=== PATIENT | female | born 1990 | race Caucasian/White ===

== ENCOUNTER 2024-01-06 11:50 | Emergency (ER) | payer BC ==
--- OUTSIDE RECORDS SUMMARY | 2024-01-06 11:54 | XMS REPORT | Continuity of Care Document ---
Author Name Unknown Address [address] [facility] [address]. [address] [place] [address] [facility] thconnect Address [address] [facility] [address] [place] [address] Care Team Providers Care Basting Puller Name Role Phone Quan Shultz Primary Care Physician [phone] Margoth Mabry Attending Clinician Unavailable Ryder Plasencia Attending Clinician Doctor Unassigned, [place] Attending Clinician U navailable Unknown, Attending Attending Clinician Unavailab RYDER Estrada Attending Clinician Unavailable Nayeli Arreguin Attending Clinician Unavailable Margoth Mabry Admitting Clinician Unavailable Physician, No Primary or Family Admitting Clinic jennifer Unavailable Payers Payer Name Policy Type Policy Number Effective Date Expirati on Date Source Problems Condition Name Condition Details Condition Category Status Onset Date Resolution Date Last Treatment Date Treating Clinician Comments Source No known active problems No known active problems Disease [facility] Allergies, Adverse Reactions, Alerts Allergy Name Allergy Type Status Severity Reaction(s) Onset Date Inactive Date Treating Clinician Comments Source No Known Allergie s DA Active U 5-16 00:00: 00 [facility] No Known Allergie s DA Active U 8-06 00:00: 00 [facility] No Known Allergie s DA Active U 8-06 00:00: 00 [facility] No Known Allergie s DA Active U 4 00:00: 00 [facility] NO KNOWN ALLERGIE S Drug Class Active [facility] Social History Social Habit Start Date Stop Date Quantity Comments Source [facility] Exposure to SARS-CoV-2 (event) 2022-10-07 00:00:00 2022-10-17 10:55:00 Not sure [facility] Tobacco use and exposure 2022-10-17 00:00:00 2022-10-17 00:00:00 Smokeless tobacco non-user [facility] Sex Assigned At 1990 00:00:00 1990 00:00:00 [facility] Smoking Status Start Date Stop Date Source Tobacco smoking consumption unknown [facility] Never smoked tobacco [facility] Medications Ordered Medication Name Filled Medication Name Start Date Stop Date Current Medication? Ordering Clinician Indication Dosage Frequency Signature (SIG) Comments Components Source carisoprodo l (SOMA) 350 mg tablet 10-17 10:59: 23 Yes 350mg Take 350 mg by mouth every 6 (six) hours as needed for Other (Muscle spasms.). [facility] amoxicillin 875 mg tablet 10-17 00:00: 00 10-28 05:59 :00 No [id number] 875mg Take 1 tablet by mouth in the morning and 1 tablet in the evening. Do all this for 10 days. [facility] valACYclovi r (VALTREX) 1 gram tablet 10-17 00:00: 00 10-25 05:59 :00 No [id number] 1g Take 1 tablet by mouth in the morning and 1 tablet in the evening. Do all this for 7 days. [facility] ESTARYLLA 0.25-35 mg-mcg per tablet 2021-09 00:00: 00 Yes 1{tbl} Take 1 tablet by mouth daily. [facility] carisoprodo l (SOMA) 350 mg tablet 11-25 00:48: 09 Yes 350mg Take 350 mg by mouth every 6 (six) hours as needed for Other (Muscle spasms.). [facility] naproxen sodium (ANAPROX) 550 mg tablet 11-25 00:00: 00 Yes 550mg Take 1 Tab by mouth 2 (two) times daily with meals. [facility] Vital Signs Vital Name Observation Time Observation Value Comments S juany Systolic blood pressure 2022-10-17 16:58:00 133 mm[Hg] [facility] Diastolic blood pressure 2022-10-17 16:58:00 83 mm[Hg] [facility] Heart rate 2022-10-17 16:58:00 78 /min [facility] Body temperature 2022-10-17 16:58:00 36.56 Sofie [facility] Respiratory rate 2022-10-17 16:58:00 17 /min [facility] Body weight 2022-10-17 16:58:00 101.606 kg [facility] BMI 2022-10-17 16:58:00 35.08 kg/m2 [facility] Oxygen saturation in Arterial blood by Pulse oximetry 2022-10-17 16:58:00 96 /min [facility] Procedures Procedure Date / Time Performed Performing Clinicia n Source ASSIGNMENT OF BENEFITS 2022-10-17 16:51:37 Docto r Unassigned, [place] [facility] [id number] 2022-03-10 00:00:00 FATOU [facility] Encounters Start Date/Time End Date/Time Encounter Type Admission Type Attending Clinicians Care Facility Care Department Encounter ID Source 2022-03-10 10:06:00 Inpatient SHILPI Margoth Mabry [facility] [id number] [facility] 2022-03-09 10:00:00 Inpatient Margoth Mabry [facility] [id number] [facility] 2022-10-19 00:00:00 2022-10-19 00:00:00 Patient Secure Msg Ryder Winston [facility] [id number] [id number] [facility] 2022-10-18 00:00:00 2022-10-18 00:00:00 Patient Secure Msg Doctor Unassigned, [place] [facility] [id number] [id number] [facility] 2022-10-17 11:00:00 2022-10-17 11:06:00 Urgent Care Ryder Winston Unknown, Attending [facility] [id number] [id number] [id number] [facility] 2022-10-17 11:00:00 2022-10-17 11:06:00 Outpatient R RYDER WINSTON [facility] [id number] [facility] 2022-10-17 00:00:00 2022-10-17 00:00:00 Orders Only Doctor Unassigned, [place] [facility] [id number] [id number] [id number] [facility] 2022-03-10 10:06:00 2022-03-12 16:13:00 Inpatient Margoth Burt [facility]PP [id number] [facility] 2022-02-09 11:12:00 2022-02-09 12:18:00 Emergency EM ArreguinNayeli [facility] DRISS [id number] [facility] 2022-02-09 11:12:00 2022-02-09 12:18:00 Emergency EM ArreguinNayeli [facility] [id number] [facility] Results Test Description Test Time Test Comments Results Result Co mments Source AG HEPATITIS B [id number] 13:44:00* Test Item Value Reference Range Interpretation Comme nts AG HEPATITIS B SURFACE (test code = HBSAG) NONREACTIVE NONREACTIVE AB HEPATITIS C [id number] 13:44:00* Test Item Value Reference Range Interpretation Comme nts AB HEPATITIS C (test code = HCVAB) NONREACTIVE NONREACTIVE SIGNAL TO CUTOFF (test code = CUTOFF) 0.02 <0.80 N AB [id number] 13:44:00* Test Item Value Reference Range Interpretation Comme nts AB TREPONEMA (test code = TREPAB) NONREACTIVE NONREACTIVE AB HIV 1 13:44:00* Test Item Value Reference Range Interpretation Comme nts AB HIV 1 2 (test code = UPT35IC) NONREACTIVE NONREACTIVE Done by Likely.coauD4P 4th Gen HIV Ag/Ab Combo Screen COVID 19 Asymptomatic IH [id number] 13:30:00* Test Item Value Reference Range Interpretation Comme nts COVID 19 Asymptomatic IH AG (test code = COVNONPUIAG) NEGATIVE NEGATIVE This test has be en authorized only for the detection ofproteins from SARS-CoV-2, not for any other viruses orpathogens. Negative results should be treated as presumptive andconfirmed with a molecular assay, if necessary for patientmanagement. Negative results do not rule out COVID-19 andshould not be used as the sole basis for treatment orpatient management decisions, including infection controldecisions. Negative results should be considered in thecontext of a patient's recent exposures, history and thepresence of clinical signs and symptoms consistent withCOVID-19. This test has not been FDA cleared or approved; the test hasbeen authorized by FDA under an Emergency Use Authorization(EUA) for use by laboratories certified under the CLIA thatmeet the requirements to perform moderate, high or waivedcomplexity tests. This test is authorized for use at thePoint of Care (POC), i.e., in patient care settingsoperating under a CLIA Certificate of Waiver, Certificate ofCompliance, or Certificate of Accreditation. This test is only authorized for the duration of thedeclaration that circumstances exist justifying theauthorization of emergency use of in vitro diagnostic testsfor detection and/or diagnosis of COVID-19 under Pczocny330(b)(1) of the Act, 21 U.S.C. 360bbb-3(b)(1), unless theauthorization is terminated or revoked sooner. CBC W/AUTO [id number] 12:27:00* Test Item Value Reference Range Interpretation Comme nts WHITE BLOOD CELL (test code = WBC) 9.7 K/mm3 6.5-12.3 N RED BLOOD CELL (test code = RBC) 4.08 M/mm3 3.51-4.69 N HEMOGLOBIN (test code = HGB) 10.8 g/dL 10.1-13.8 N HEMATOCRIT (test code = HCT) 34.3 % 32.5-41.8 N MEAN CELL VOLUME (test code = MCV) 84.1 fL 84.6-96.6 L MEAN CELL HGB (test code = MCH) 26.5 pg 27.3-33.9 L MEAN CELL HGB CONCETRATION ( test code = MCHC) 31.5 gm/dL 32.0-34.2 L RED CELL DISTRIBUTION WIDTH (test code = RDW) 14.6 % 12.2-16.3 N PLATELET COUNT (test code = PLT) 251 K/mm3 134-363 N MEAN PLATELET VOLUME (test c ode = MPV) 10.3 fL 9.2-12.7 N NEUTROPHIL % (test code = NT%) 65.6 % 57.9-77.3 N LYMPHOCYTE % (test code = LY%) 20.4 % 14.5-29.7 N MONOCYTE % (test code = MO%) 10.5 % 3.6-10.2 H EOSINOPHIL % (test code = EO%) 1.5 % 0.0-3.0 N BASOPHIL % (test code = BA%) 0.6 % 0.1-0.9 N NEUTROPHIL # (test code = NT#) 6.4 K/mm3 LYMPHOCYTE # (test code = LY#) 2.0 K/mm3 MONOCYTE # (test code = MO#) 1.0 K/mm3 EOSINOPHIL # (test code = EO#) 0.15 K/mm3 BASOPHIL # (test code = BA#) 0.1 K/mm3 RBC MORPHOLOGY REQUIRED (lela t code = RBCM) NORMAL NORMAL PLATELET MORPHOLOGY REQUIRED (test code = PLTMR) NORMAL NORMAL HGB [id number] 12:46:00* Test Item Value Reference Range Interpretation Comme nts HEMOGLOBIN (test code = HGB) 7.9 g/dL 10.7-13.9 L HEMATOCRIT (test code = HCT) 26.1 % 32.1-42.1 L HGB [id number] 05:47:00* Test Item Value Reference Range Interpretation Comme nts HEMOGLOBIN (test code = HGB) 7.8 g/dL 10.7-13.9 L HEMATOCRIT (test code = HCT) 25.7 % 32.1-42.1 L AG HEPATITIS B [id number] 17:05:00* Test Item Value Reference Range Interpretation Comme nts AG HEPATITIS B SURFACE (test code = HBSAG) NONREACTIVE NONREACTIVE IS CONSENT FORM SIGNED FOR HIV TESTING? YAB HEPATITIS C [id number] 17:05:00* Test Item Value Reference Range Interpretation Comme nts AB HEPATITIS C (test code = HCVAB) NONREACTIVE NONREACTIVE SIGNAL TO CUTOFF (test code = CUTOFF) 0.02 <0.80 N IS CONSENT FORM SIGNED FOR HIV TESTING? YAB [id number] 17:05:00* Test Item Value Reference Range Interpretation Comme nts AB TREPONEMA (test code = TREPAB) NONREACTIVE NONREACTIVE IS CONSENT FORM SIGNED FOR HIV TESTING? YAB HIV 1 17:05:00* Test Item Value Reference Range Interpretation Comme nts AB HIV 1 2 (test code = [id number]) NONREACTIVE NONREACTIVE Done by [employer] 4th Gen HIV Ag/Ab Combo Screen IS CONSENT FORM SIGNED FOR HIV TESTING? YAG HEPATITIS B [id number] 16:27:00* Test Item Value Reference Range Interpretation Comme nts AG HEPATITIS B SURFACE (test code = HBSAG) NONREACTIVE NONREACTIVE IS CONSENT FORM SIGNED FOR HIV TESTING? YAB HEPATITIS C [id number] 16:27:00* Test Item Value Reference Range Interpretation Comme nts AB HEPATITIS C (test code = HCVAB) NONREACTIVE SIGNAL TO CUTOFF (test code = CUTOFF) <0.80 IS CONSENT FORM SIGNED FOR HIV TESTING? YAB [id number] 16:27:00* Test Item Value Reference Range Interpretation Comme nts AB TREPONEMA (test code = TREPAB) NONREACTIVE NONREACTIVE IS CONSENT FORM SIGNED FOR HIV TESTING? YAB HIV 1 16:27:00* Test Item Value Reference Range Interpretation Comme nts AB HIV 1 2 (test code = TGV17BZ) NONREACTIVE IS CONSENT FORM SIGNED FOR HIV TESTING? YCBC W/AUTO [id number] 15:31:00* Test Item Value Reference Range Interpretation Comme nts WHITE BLOOD CELL (test code = WBC) 10.4 K/mm3 6.6-12.1 N RED BLOOD CELL (test code = RBC) 4.08 M/mm3 3.45-5.01 N HEMOGLOBIN (test code = HGB) 10.6 g/dL 10.7-13.9 L HEMATOCRIT (test code = HCT) 33.8 % 32.1-42.1 N MEAN CELL VOLUME (test code = MCV) 83 fL 84.1-94.8 L MEAN CELL HGB (test code = MCH) 26.0 pg 27-35 L MEAN CELL HGB CONCETRATION ( test code = MCHC) 31.4 gm/dL 32.2-34.1 L RED CELL DISTRIBUTION WIDTH (test code = RDW) 14.5 % 12.4-16.5 N PLATELET COUNT (test code = PLT) 277 K/mm3 133-385 N IMMATURE PLATELET FRACTION ( test code = IPF) 0.0 % 0.0-10.8 N MEAN PLATELET VOLUME (test c ode = MPV) 10.0 fl 9.1-12.7 N NEUTROPHIL % (test code = NT%) 69.2 % 56.5-79.4 N LYMPHOCYTE % (test code = LY%) 17.1 % 14.3-34.3 N MONOCYTE % (test code = MO%) 10.3 % 5.1-10.4 N EOSINOPHIL % (test code = EO%) 1.4 % 0.1-3.0 N BASOPHIL % (test code = BA%) 0.3 % 0.1-1.0 N NEUTROPHIL # (test code = NT#) 7.2 K/mm3 LYMPHOCYTE # (test code = LY#) 1.8 K/mm3 MONOCYTE # (test code = MO#) 1.1 K/mm3 EOSINOPHIL # (test code = EO#) 0.14 K/mm3 BASOPHIL # (test code = BA#) 0.0 K/mm3 RBC MORPHOLOGY REQUIRED (lela t code = RBCM) NORMAL NORMAL PLATELET MORPHOLOGY REQUIRED (test code = PLTMR) NORMAL NORMAL Notes Date/Time Note Provider Source 2022-03-11 10:34:00 [id number]:34:0 0 [facility] ([facility])OB Disch PostpartumREPORT#:[id number] REPORT STATUS: SignedDATE:03/11/22 TIME: 1034 PATIENT: ALEJANDRO SUTHERLAND UNIT #: [id number]#: [id number] ROOM/BED: 2041-ADOB: [birth year] AGE: 31 SEX: F ATTEND: Margoth Mabry [facility] AUTHOR: Rosalie Maurer * ALL edits or amendments must be made on the electronic/computer document * Subjective SubjectiveAdmission EGA: Weeks: 37 Days: 0EGA at delivery (wks/days): 37 weeksStatus/day: post operative (1)Patient reports: Patient reports: Yes: normal lochia, pain management effective, tolerating po well, voiding well, voiding without pain, tolerating ambulation, flatus. No: complaints. Objective GeneralVS:Vital Signs Date Temp Pulse Resp B/P B/P Mean Pulse Ox FiO2 03/10-03/11 97.8-98.2 75-96 18 91-114/49-68 69.0-79.0 95-97 Last Documented: Result Date Time B/P 107/03/11 09 Temp 98.2 03/11 0909 Pulse 86 03/11 0909 Resp 18 03/11 0909 B/P Mean 76.0 03/10 1645 Pulse Ox 97 03/10 1645 PATIENT WEIGHT: Weight (lb): 230Weight (oz): 8.66Weight (kg): 95.500 Physical ExamBreasts: Breasts: fillingLungs: clear to auscultation (no distress )Neuro: Exam: alert, oriented x3, normal speech, normal gaitAbdomen: post gravid, soft, no abnormal tendernessIncision site: dry, no drainage, no inflammationUterus: involution appropriate, non-tenderFundus: firm, below the umbilicusLochia: normalLower extremities: Edema: trace ResultsFindings/Data:Laboratory Tests: 03/11 03/09 0713 1052 Hematology Hgb (10.1 - 13.8 g/dL) 9.9 L Hct (32.5 - 41.8 %) 31.3 L Serology SARS-CoV-2 Ag (Rapid) (NEGATIVE) NEGATIVE Discharge Summary GeneralFree Text A P:31yo s/p rpt c/s at 37.0wga for prior c/s x1, h/o myomectomy, h/o uterine window during last deliveryPostop day 1 Preoperative Hgb 10.8, ebl appropriate at c/s, no hemorrhage, postoperative hgb 9.9 chronic anemia of , discussed PP iron and pnv Pain- PO pain meds- tolerating well, pt states minimal pain Incision- c/d/I, incisioncal care reviewedGU- patricio removed, voiding without difficulty, encouraged pp stool softener Rh+/MMRVIPMH - endometriosis, fibroids, irregular periods; PSH - breast augmentation, c/s x2, laparoscopy x2, ovarian cystectomy, myomectomy (Dr. Berry for endometriosis)OB- Baby Boy! "Glenn" getting circ. patient and spouse at bedside Dispo- meeting postoperative milestones, states minimal pain, ambulating well, d/c tomorrow per patient request pending pedi clearance. PP medications escribed, anticipate 2 week f/u at [facility], Assessment: nml progress, chronic blood loss anemiaDate of admission:Date of admission: 03/10/22 Admission diagnosis: previous uterine incisionHospital course: repeat admit, epidural anesthesiaProcedures: epidural anesthesia, repeat CS deliveryDischarge to: Home/Self CareDischarge diagnosis: full-term uncomp delivery, previous uterine incisionDischarge management: less than 30 minsTime spent: Time spent with patient (minut 15 >50% spent on counseling/coordination of care: yesBaby A: status: live born Gender: male (Glenn) 1 minute: 8 5 minutes: 9 Discharge InstructionsInstructions: routine instr sheet given, instr and warnings rev'dDiet: RegularActivity: Light Duty, No Merrick for 6 WksAdditional discharge routines: Attending Follow-UpContraception discussed: abstinence for 4-6 weeks, will discuss at PP visitDischarge meds:Continue taking these medications:PNV WITH FE FUMARATE/FA () 1 EACH TAB 1 TABLET ORAL DAILY. Start taking the following new medications:IBUPROFEN (MOTRIN) 600 MG TAB 600 MILLIGRAM ORAL EVERY 6 HOURS. Qty = 30 Refills = 1 DOCUSATE SODIUM (COLACE) 100 MG CAP 100 MILLIGRAM ORAL BEDTIME. Qty = 30 No Refills Prescriptions: e-prescribe Add'l Follow-up AppointmentsAttending Physician: Attending Physician: Margoth Mabry MD Special instructions:call if heavy bleeding, severe pain, shortness of breath, fever/chills, emotion concerns at [address] [place] [address] #:[phone] OF REPORT CLClinical [id number]:34:00F.[id number] able for patient [id number]:39:09 [facility] 2022-03-10 14:36:00 [id number] 3/SEZ//[id number]+G+[id number]:36:0 0 [facility])OB Delivery NoteREPORT#:[id number] REPORT STATUS: SignedDATE:03/10/22 TIME: 1436 PATIENT: ALEJANDRO SUTHERLAND UNIT #: [id number]#: [id number] [address] [birth year] AGE: 31 SEX: F ATTEND: Margoth Mabry [facility] AUTHOR: Margoth Mabry MD * ALL edits or amendments must be made on the electronic/computer document * OB Delivery Nursing Documentation ReviewNursing data:The data set between the solid lines has been imported from nursing documentation. Any exceptions have been noted below under Provider comments. ROM date: ROM time: Membranes rupture method: Amniotic fluid color: Amniotic fluid amount: Steroids prior to arrival: Antibiotic prophylaxis given: YesPost hemorrhage risk score: Medium Risk for Hemorrhage. Delivery date A: Delivery time infant A: Birthweight (gm) infant A: Weight (lb) infant A: Weight (oz) infant A: Gender infant A: 1 minute infant A: 5 minutes A: 10 minutes A: Cord pH obtained A: Vacuum time infant A: Vacuum # pulls infant A: Vacuum # popoffs A: QBL at delivery: Provider comments on imported nursing data: [] Pre-deliveryNewborn evaluation at delivery: NRP certified personnelAdmission EGA: Weeks: 37 Days: 0EGA at delivery (wks/days): 37 weeksAdmission indication:prior c/s x1, prior myomectomy, prior uterine window previously seen with last delivery Blood Loss/DetailsBlood loss at delivery: <1K: no sx hypovol=no hemEBL at delivery (ml's): 700 Baby A InformationBaby A information Delivery date: 03/10/22 Delivery time: 1414 status: live born Wt of baby (lbs/oz): 7.6 Gender: male (Glenn) 1 minute: 8 5 minutes: 9 Presentation: vertexABG details Baby A Cord blood gases: not collectedNuchal cord Baby A Nuchal cord: no Operative Note-FullORM Surgeries: Surgery Date and Time: 03/10/2022 1200 Proposed Primary Procedure: (R C/S EDC 7.5 10/28 AREF H/O Nursing Data:The data set between the solid lines has been imported from nursing documentation. Any exceptions have been noted below under Provider comments. ROM date: ROM time: Membranes rupture method: Amniotic fluid color: Amniotic fluid amount: Steroids prior to arrival: Antibiotic prophylaxis given: YesPost hemorrhage risk score: Medium Risk for Hemorrhage. Delivery date infant A: Delivery time infant A: Birthweight (gm) infant A: Weight (lb) infant A: Weight (oz) A: Gender infant A: 1 minute A: 5 minutes A: 10 minutes infant A: Cord pH obtained infant A: Vacuum time A: Vacuum # pulls infant A: Vacuum # popoffs infant A: QBL at delivery: Provider comments on imported nursing data: [] )(Start date: 03/10/22)(Start time: 1410)(Pre-procedure diagnosis:prior c/s x1)(Post-procedure diagnosis: same as pre-procedure dx)(Procedures performed:repeat low transverse csection)(Primary Surgeon: Margoth Mabry MD)(Manager Progressive Care(s): MIKALA Rodriguez)(Anesthesia: combined spinal/epiIndications:prior c/s x1, prior myomectomy, prior uterine window)(Operative findings:Male infant in cephalic presentation, vigorous immediately after delivery. Evidence of endometriosis on posterior aspect of uterus, evidence of prior surgery with Dr. Berry (fimbrioplasty, uterine suspension, LSO), otherwise minimal scar tissue/adhesive disease)( Estimated blood loss (ml): 700)(Specimens removed/altered: noneFluids:800Urine output:175Disposition: PACU, return to floorCounts: Sponge count: correct Instrument count: correct Needle count: correct Cottonoid count: correctWound class: clean Delivery DeliveryCesarean section indication: elective repeat Priority: scheduled : : contraindicated Antibiotic prior to incision: 1 dose )(SCDs applied activated: Yes Uterine incision: low transverse Uterine scar: intact Consent: indication discussed, questions answered, pt consent to op delivery Mother's condition: mother stable 's condition: stable in roomAdditional comments:After informed consent was obtained, the patient was taken to the operating roomwhere anesthesia was administered and found to be adequate. She was then preppedand draped in sterile fashion in a dorsal supine position with a leftward tilt. A time out procedure was then performed and the OR team agreed to the planned procedure. The patient s abdomen was then tested with an Allis clamp and anesthesia was found to be adequate. A Pfannenstiel skin incision was then made with the scalpel and carried down to the underlying fascia with the bovie. The bovie was then used to score the fascia in the midline and the incision was then extended laterally using Tapia scissors. The superior aspect of the fascial incision was then grasped with Sarbjit clamps, elevated and rectus muscles were dissected off. The inferior aspect of the fascial incision was then grasped with Sarbjit clamps, elevated andrectus muscles were dissected off. The rectus muscles were then in the midline and the peritoneum identified in a clear area and entered bluntly. The peritoneum was then extended superior and inferiorly with good visualization of the bladder. The bladder blade was then inserted and the vesicouterine peritoneum was then identified, grasped with pickups and entered sharply using Metzembaum scissors. The incision was then extended laterally and bladder flap created digitally. The bladder blade was then reinserted and the uterus was incised in a transversefashion with the scalpel. The incision was then extended laterally using Crump method. The was then delivered in cephalic presentation atraumatically, nose and mouth were suctioned, cord was clamped and cut, and was handed off to waiting nurse. Nuchal cord was not noted. Cord blood banking was not collected. The placenta was then removed manually and the uterus was exteriorized and was cleared of all clots and debris with a moist lap sponge. The hysterotomy was then repaired using 0 Monocryl in a running locked fashion with good hemostasis noted. The uterus was then returned to the abdomen. The pelvic colic gutters were then cleared off all clots and debris using a moist lap sponge. The hysterotomy and bladder were then reinspected and found to be hemostatic. The rectus muscles and peritoneum were then reapproximated in the midline using 2.0 Chromic in a mattress suture fashion. The muscle and fascia were then examined and found to be hemostatic. The fascia was then reapproximated using 0Vicryl in a running fashion. The subcutaneous tissue was then irrigated and bovie cautery was used to obtain hemostasis. The subcutaneous tissue was then reapproximated using 2.0 Plain. The skin was then closed with 3.0 Monocryl in asubcuticular fashion. The patient tolerated the procedure well. She was then taken to recovery room in stable condition. Sponge, lap and needle counts were correct times 3. The radiofrequency scan was performed for retained sponges and was negative. 2 grams of ancef were given prior to the start of surgery for surgical prophylaxis. at 1550 [facility] #:[id number] OF REPORT CLClinical kbjj4942-55-56Z53:36:00F.[id number] able for patient titnYNNRONLERUZUOF0638-61-20J11:51:07 [facility] 2022-03-10 12:08:00 [id number] C7LX4GmBeez1+6IyDYVXhLLgDGz03 lcJ6YsXE9LUEx1MiSfF6Jl+b+63ip3R0550-91-09T81:08:0 0 [facility] ([facility])Clinical NoteREPORT#:[id number] REPORT STATUS: SignedDATE:03/10/22 TIME: 1208 PATIENT: ALEJANDRO SUTHERLAND UNIT #: [id number]#: [id number] ROOM/BED: [place] [address]-ADOB: [birth year] AGE: 31 SEX: F ATTEND: Margoth Mabry [facility] AUTHOR: Margoth Mabry MD * ALL edits or amendments must be made on the electronic/computer document * Clinical NoteNote:See H P in paper chart for full details 31yo at 37.0wga presents for scheduled repeat c/s for prior c/s x1, h/o myomectomy, h/o uterine window during last deliverey1. Prior c/s with prior myomectomy/uterine window - not a candidate for , desires repeat c/s; declines btl2. Rh+/MMRVI3. PMH - endometriosis, fibroids, irregular periods; 4. PSH - breast augmentation, c/s x1, laparoscopy x2, ovarian cystectomy, myomectomy (Dr. Berry for endometriosis)5. Boy! "Glenn"6. Will proceed to OR, anticipate dc home POD 2/3 at 1541 RPT #:[id number] OF REPORT CLClinical yhbf8893-11-40K34:08:00F.AZBE86648579-4470OHKowmc able for patient wfmeJIIVPKAHLNHFLF8593-78-76Y01:42:16 [facility] 2022-02-09 12:44:00 [id number] ruTFGT970PYGaOPSV5ztW90rDxT1q la0LBCfAXjWSFaCVgDs0VQaKFv+5dZ66123-03-08W04:44:0 0 [facility] ([facility])EMERGENCY PROVIDER REPORTREPORT#:[id number] REPORT STATUS: SignedDATE:02/09/22 TIME: 1244 PATIENT: ALEJANDRO SUTHERLAND UNIT #: [id number]#: [id number] ROOM/BED:AGE: 31 SEX: F PCP PHYS: Margoth Mabry AUTHOR: Nayeli Arreguin DO * ALL edits or amendments must be made on the electronic/computer document * [facility] History Nursing Documentation ReviewNursing data:The data set between the solid lines has been imported from nursing documentation. Any exceptions have been noted below under Provider comments. Current dataSteroids prior to arrival: ROM date: ROM time: EDC date: 03/31/22Gestational age (labor triage): Post hemorrhage risk score: Prior historyGravida: 2 Para: 1 Term: : Abortions spontaneous: Abortions induced: Living children: Ectopic: Stillbirths: Live births: deaths: Number of previous C/S: Reported maternal labs/dataBlood type: Rh type: Rubella: Hepatitis B: HIV exposure test: UnknownVDRL: Group B beta strep: Rho(D) immune globulin this preg: Monitor mode - UA: Feeding preference: Provider comments on imported nursing data: [] Chief complaint: diarrhea, discomfortHPI:31 yo at 32+6 weeks KELIN presents to [facility] with diarrhea since 0900 yesterdayand am upper abdominal discomfort/pressure. Otherwise she feels well and denies f/c/n/v. Denies sick contacts, and reports eating crawfish on wednesday night.Otherwise, she feels well, reports +FM, denies VB/LOF/RUC. history: : 2 Term: 1 Living children: 1 Previous : low uterine trans incis Number of prev : 1Conditions of : previous uterine incisionPast medical history: endometriosis, anxiety (no meds)Past surgical history: , diagnostic lap, laparotomy x1 for endometriosis, breast augmentationSocial history: , no alcohol use, no tobacco use, no drug useMedications:Home Medications:Medication Dose/Rte/Freq Days Qty Entered Last Max Daily Dose Reviewed PNV WITH FE 1 TAB PO DAILY 02/09/22 FUMARATE/FA 1129 ()Strength: 1 EACH TAB Ondansetron Hcl (ZOFRAN) 4 MG PO 02/09/22Strength: 4 MG/5 ML ORALSOL TID PRN PRN NAUSEA 1130 AllergiesCoded Allergies:No Known Allergies (02/09/22) Review of Systems Free Text ROS NotesFree text ROS notes:10 systems reviewed and negative with exception of the following pertinent positives: abdominal discomfort (upper), diarrhea Objective GeneralVS:PATIENT WEIGHT: Weight (lb): 230Weight (oz): 6.13Weight (kg): 104.500 Notes:VS: normotensive, afebrile, P:101, RR:18, POX: room air Physical ExamHEENT: normocephalic w/o injury, no scleral icterusCardiac: mild tachycardia, no peripheral edemaLungs: unlabored breathingNeuro: Exam: alert, oriented x3, normal speech, normal gait, CNII-XII grossly intactAbdomen: gravid, soft, no abnormal tenderness, no guarding, no rebound tenderness, some dull achy pain when palpate deeply in the epigastrium, no pain otherwise noted, no rebound, peritoneal signsMusculoskeletal: normal inspection, painless range of motionUterine activity: Monitor: toco Frequency (description): none, irritability FHR evaluation: FHR category: category 1Membranes: Membranes: IntactLower extremities: Edema: none Diagnosis, Assessment Plan Diagnosis, Assessment PlanFree Text A P:31 yo at 32+6 with clinical picture most c/w acute gastritis, likely eitherdue to viral origin or contaminated food handling (eg, crawfish boil this weekend). Afebrile, FHR CAtegory 1, no ctx. -At this time we discussed the typical course of gastritis in and how foods can affect GI system differently in (especially if contaminated)-Recommend a trial of BLAND diet, PO pepcid or prilosec daily and immodium prn for diarrhea, copious water hydration as well-as most of these symptoms resolve within 48 hours of symptom onset-She feels comfortable with this plan and all of her questions were answered-We reviewed [facility] return precautions-Discharged home to f/u with her OB at her next appt Gilberto Arreguin DO FACOG at 1447 RPT #:[id number] OF REPORT CLClinical fkfg7534-28-15K68:44:00F.FBUC94015775-4081PFJtbmy able for patient gsrlXOWPICZLVLVMZG9857-66-48F56:47:14 [facility] 2019-05-05 10:04:00 [id number] saqnelIn7EeB9dQ/HjnkfGiITCTpM xzfrzaBEqBAkS98haWBGJYeym2CmCXxxr97454-04-18I76:0 4:00 [facility] ([facility])Clinical NoteREPORT#:[id number] REPORT STATUS: SignedDATE:05/05/19 TIME: 100 PATIENT: ALEJANDRO LOPEZ UNIT #: [id number]#: [id number] ROOM/BED: [facility]-ADOB: [birth year] AGE: 28 SEX: F ATTEND: Margoth Mabry [facility] AUTHOR: Sarah Kumar CHIEF METEOROLOGIST * ALL edits or amendments must be made on the electronic/computer document * Clinical NoteNote:Social visit with patient prior to discharge. She reports that her pain is well controlled, bleeding is normal, baby is , tolerating food, voiding and passing gas. No questions / concerns. Will f/u in office at 2 weeks. at 1005 RPT #:[id number] OF REPORT CLClinical eiln3179-39-79H92:04:00F.PWTD90016555-1211KPOfljq able for patient itwiZESNVYUWEEMUTE9178-57-34J62:05:27 [facility] 2019-05-04 11:15:00 [id number] 8Hs1ACsb253QjzW89jnaQwIarJGrA 3IqcqyaVrHbN2a2W7VU5Dd/kNVIUbt5rKZ4408-32-68N31:1 5:00 [facility] ([facility])OB Disch PostpartumREPORT#:[id number] REPORT STATUS: SignedDATE:05/04/19 TIME: 1115 PATIENT: ALEJANDRO LOPEZ UNIT #: [id number]#: [id number] ROOM/BED: [facility]-ADOB: [birth year] AGE: 28 SEX: F ATTEND: Margoth Mabry [facility] AUTHOR: Sarah Kumar * ALL edits or amendments must be made on the electronic/computer document * Subjective SubjectiveAdmission EGA (wks/days): 37 weeksEGA at delivery (wks/days): 37 weeksStatus/day: post operative (day 2)Patient reports: Patient reports: Yes: normal lochia, pain management effective, tolerating po well, voiding well, voiding without pain, tolerating ambulation, flatus. No: complaints, bowel movement. Objective GeneralVS:Vital Signs Date Temp Pulse Resp B/P B/P Mean Pulse Ox FiO2 05/03-05/04 97.6-98.7 91-102 18- 98-109/64-71 Last Documented: Result Date Time B/P 100/69 05/04 800 Temp 98.7 05/04 08 Pulse 101 05/04 0800 Resp 19 05/04 800 Pulse Ox 98 05/02 1835 B/P Mean 82.0 05/02 1755 Patient Weight Weight (lb): 266Weight (oz): Weight (kg): 107.228938 Physical ExamBreasts: Feeding: breastLungs: no distress Neuro: Exam: alert, oriented x3, normal speechAbdomen: post gravid, soft, no abnormal tenderness, no guardingIncision site: well approximated edges, dry, no drainage, no inflammationUterus: involution appropriate, non-tenderFundus: firm, at the umbilicusLochia: normalLower extremities: Edema: trace ResultsFindings/Data:Laboratory Tests: 05/03 05/03 1205 0510 Hematology Hgb (10.7 - 13.9 g/dL) 7.9 L 7.8 L Hct (32.1 - 42.1 %) 26.1 L 25.7 L Discharge Summary Discharge SummaryFree Text A P:28yo at 37.0 wga s/p scheduled primary c/s for h/o myomectomy Assessment:POD # 2-ID: Afebrile. No signs or symptoms of infection. Incision appears clean, dry, intact with steri strips. -Heme: pre-delivery hgb 10.6, post-delivery hgb 7.8 --> 7.9. Patient reports that she is no longer feeling any dizziness and feels "well". Ordered oral ironsupplement for chronic iron deficiency vs acute blood loss anemia. No hemorrhage. VS stable. Oral iron supplement for discharge as well. -CV/Pulm: hemodynamically stable-GI/: tolerating regular diet, voiding spontaneously. passing flatus, colace daily for bowel regimen. -Mother/Baby: patient is breast feeding / pumping for her infant who is at bedside. -Pain control: well controlled with oral motrin and norco. -Rubella immune /Rh positive -PMH:severe stage IV endometriosis-PSH:03/2017 - laparoscopy with Dr. Mabry10/2017 - laparscopy with Dr. Berry01/2018 - laparotomy with Dr. Berry, excision of scar tissue from endometiosis, appendectomy, bowel resection, LSO, Right ovarian cystectomy, uterine suspension, myomectomy, right fimbrioplasty; previous myomectomy-Dispo: anticipate discharge home on POD #2 or #3. Order placed for discharge this evening if patient chooses. She was undecided. Otherwise, patient may go home on POD #3. Date of admission:Date of admission: 05/02/19 Admission diagnosis: previous uterine incision, history of myomectomy repeat c/s Hospital course: repeat admit, epidural anesthesiaProcedures: epidural anesthesia, repeat CS deliveryBaby A: status: live born Gender: female (Mary) 1 minute: 9 5 minutes: 9Plan: routine careInstructions: routine instr sheet given, instr and warnings rev'd, specific instr as notedDiet: regularActivity and restrictions: may shower, pelvic rest, no intercourse for 6 wks, nodriving (while on narcotic pain meds)Contraception discussed: will discuss at PP visitDischarge meds:Continue taking these medications:PNV WITH FE FUMARATE/FA () 1 EACH TAB 1 TABLET ORAL DAILY. Start taking the following new medications:FERROUS SULFATE (FEOSOL) 325 MG TAB 325 MILLIGRAM ORAL DAILY. Qty = 30 Refills = 2 IBUPROFEN (MOTRIN) 600 MG TAB 600 MILLIGRAM ORAL EVERY 6 HOURS. Qty = 30 Refills = 1 DOCUSATE SODIUM (COLACE) 100 MG CAP 100 MILLIGRAM ORAL BEDTIME. Qty = 30 Refills = 1 Prescriptions: e-prescribeDischarge condition: stableDischarge to: homeFollow up in: 2 weeksDischarge diagnosis: full-term uncomp deliveryDischarge management: less than 30 minsTime spent: Time spent with patient (minutes): 15 >50% spent on counseling/coordination of care: yes at 1119 RPT #:[id number] OF REPORT OBObstetric bqmy0365-63-09T31:15:00F.[id number] able for patient resxIEPSWPMUBAPGXL8551-64-71E42:19:56 [facility] 2019-05-03 11:16:00 [id number] ojdxH7aijSMhqxW9hWHO0viriwh+u ERX7xtwp5UV/ofI+CUhTuDvmeNXa/I00qg7785-41-91N34:1 6:00 [facility] ([facility])OB Postpart Progr NoteREPORT#:[id number] REPORT STATUS: SignedDATE:05/03/19 TIME: 1116 PATIENT: ALEJANDRO LOPEZ UNIT #: [id number]#: [id number] [address] [birth year] AGE: 28 SEX: F ATTEND: Margoth Mabry [facility] AUTHOR: Sarah Kumar * ALL edits or amendments must be made on the electronic/computer document * Subjective SubjectiveEGA weeks/days: 37 weeksStatus/Day: post operative (day 1)Patient reports: Patient reports: Yes normal lochia, Yes pain management effective, Yes tolerating po well, Yesvoiding well, Yes voiding without pain, Yes tolerating ambulation, No no complaints, No flatus, No bowel movement Objective Nursing Documentation ReviewNursing Data:The data set between the solid lines has been imported from nursing documentation. Any exceptions have been noted below under Provider comments. Feeding preference: Provider comments on imported nursing data: [] GeneralVS:Vital Signs: Date Time Temp Pulse Resp B/P B/P Pulse O2 O2 Flow FiO2 Mean Ox Delivery Rate 05/03 0835 97.8 81 18 103/71 08/07 0420 97.9 90 18 105/71 08/06 1958 98.3 93 18 113/73 08/06 1835 97.5 95 114/73 98 08/06 1755 82.0 08/06 1755 126/57 08/06 1745 94 96 08/06 1740 86.0 08/06 1740 117/65 08/06 1730 94 93 08/06 1725 98.0 08/06 1725 120/83 08/06 1715 94 90 08/06 1710 91.0 08/06 1710 87 18 118/75 90 08/06 1703 87.0 08/06 1703 90 16 113/70 96 08/06 1700 94 95 08/06 1645 96 93 08/06 1640 88.0 08/06 1640 97 16 119/68 98 08/06 1630 90 95 08/06 1625 81.0 08/06 1625 98 20 110/63 96 08/06 1615 92 94 08/06 1610 86.0 08/06 1610 100 18 117/65 98 08/06 1555 97.6 99 20 126/70 97 08/06 1344 81.0 08/06 1344 97.7 108 20 115/59 Patient Weight Weight (lb): 266Weight (oz): Weight (kg): 107.053622 Physical ExamBreasts: Feeding: breastLungs: no distress Neuro: Exam: alert, oriented x3, normal speechAbdomen: soft, no abnormal tenderness, no guardingIncision site: well approximated edges, dry, no drainage, no inflammationUterus: firm, involution appropriateFundus: firm, at the umbilicusLochia: normalLower extremities: Edema: trace ResultFindings/Data:Laboratory Tests: 05/03 510 Hematology Hgb (10.7 - 13.9 g/dL) 7.8 L Hct (32.1 - 42.1 %) 25.7 L Diagnosis, Assessment Plan Diagnosis, Assessment PlanFree Text A P:28yo at 37.0 wga s/p scheduled primary c/s for h/o myomectomy Assessment:POD # 1-ID: Afebrile. No signs or symptoms of infection. Pressure dressing removed. Incision appears clean, dry, intact with steri strips. -Heme: pre-delivery hgb 10.6, post-delivery hgb 7.8 - repeat HH this AM pending.Patient reports that she is "slightly dizzy" when she stands up. Ordered oral iron supplement for chronic iron deficiency vs acute blood loss anemia. No hemorrhage. VS stable. Discussed possibility of blood if patient HH decreases more and she remains symptomatic. Verbalized understanding. -CV/Pulm: hemodynamically stable-GI/: tolerating regular diet, voiding spontaneously. not passing flatus - encouraged simethicone and ambulation. colace daily for bowel regimen. -Mother/Baby: patient is breast feeding her infant who is at bedside. -Pain control: well controlled with epidural and IV tordol now. Will transition to oral motrin and norco later today. -Rubella immune /Rh positive -PMH:severe stage IV endometriosis-PSH:03/2017 - laparoscopy with Dr. Mabry10/2017 - laparscopy with Dr. Berry01/2018 - laparotomy with Dr. Berry, excision of scar tissue from endometiosis, appendectomy, bowel resection, LSO, Right ovarian cystectomy, uterine suspension, myomectomy, right fimbrioplasty; previous myomectomy-Dispo: anticipate discharge home on POD #3 or 4. Assessment: nml progressPlan: routine care at 1123 RPT #:[id number] OF REPORT PRProgress Ycjb0730-31-71E49:16:00F.YGAD52097458-3967YABxedx able for patient cpfsKZACMNMMEDGJKV3554-95-34B44:24:17 [facility] 2019-05-02 15:49:00 MTrffhckioc34701668x pRfUIkjbdUPOjraQ/nuLq4cWXLkhh zT81OLWei2VwGOEN0Vz+dOpQ/4Ns46mKmC1282-93-38A55:4 9:00 [facility] ([facility])Clinical NoteREPORT#:[id number] REPORT STATUS: SignedDATE:05/02/19 TIME: 1548 PATIENT: ALEJANDRO LOPEZ UNIT #: [id number]#: [id number] [address] [birth year] AGE: 28 SEX: F ATTEND: Margoth Mabry [facility] AUTHOR: Margoth Mabry MD * ALL edits or amendments must be made on the electronic/computer document * Clinical NoteNote:28yo at 37.0 wga presents for scheduled primary c/s for h/o myomectomy 1. Pt with prior myomectomy - previously reviewed indications for primary c/s at37w, pt and family amenable to plan.2. GBS +3. Rh+/RImm4. Notable PMH/PSH severe stage IV endometriosis03/2017 - laparoscopy with Dr. Mabry10/2017 - laparscopy with Dr. Berry01/2018 - laparotomy with Dr. Berry, excision of scar tissue from endometiosis, appendectomy, bowel resection, LSO, Right ovarian cystectomy, uterine suspension, myomectomy, right fimbrioplasty5. Social - baby girl "Mary" at 1813 RPT #:[id number] OF REPORT CLClinical ummu6572-54-81U69:49:00F.IJAH16364436-1810PSDzghr able for patient wuyqPHGMHLPAGBXIRY5072-95-19I29:14:15 [facility] 2019-05-02 15:49:00 VFvsynghmcy89124207p k3cTRpNdtQ5oBjq2IQEVGNe8vXDIY rynPhtM4Nli5B69BIOpDZ6yX2MHpQJ/Fk23696-85-72H30:4 9:00 [facility] ([facility])OB Delivery NoteREPORT#:[id number] REPORT STATUS: SignedDATE:05/02/19 TIME: 1549 PATIENT: ALEJANDRO LOPEZ UNIT #: [id number]#: [id number] [address] [birth year] AGE: 28 SEX: F ATTEND: Margoth Mabry MDADM AUTHOR: Margoth Mabry MD * ALL edits or amendments must be made on the electronic/computer document * OB Delivery Nursing Documentation ReviewNursing data:The data set between the solid lines has been imported from nursing documentation. Any exceptions have been noted below under Provider comments. ROM date: ROM time: Membranes rupture method: AROMAmniotic fluid color: Amniotic fluid amount: EGA (weeks/days): 37.0EGA at admit (weeks): EGA at delivery (weeks): Steroids prior to arrival: Antibiotic prophylaxis given: evaluation at delivery: Delivery date infant A: Delivery time infant A: Birthweight (gm) A: Weight (lb) A: Weight (oz) infant A: Gender infant A: 1 minute infant A: 5 minutes A: 10 minutes infant A: Cord pH obtained infant A: Vacuum time infant A: Vacuum # pulls A: Vacuum # popoffs A: Provider comments on imported nursing data: [] Pre-deliveryGBS status: GBS status: positiveNewborn evaluation at delivery: NRP certified personnelAdmission EGA (wks/days): 37 weeksEGA at delivery (wks/days): 37 weeks GeneralVS:Last Documented: Result Date Time B/P Mean 82.0 05/02 1755 B/P 126/57 05/02 1755 Pulse Ox 96 05/02 1745 Pulse 94 / 1745 Resp 18 05/02 1710 Temp 97.6 05/02 1555 Membranes: AROMROM date: 05/02/19Amniotic fluid: clear Baby A InformationBaby A information Delivery date: 05/02/19 Delivery time: 1518 status: live born Wt of baby: not yet available (6.14) Gender: female (Mary) 1 minute: 9 5 minutes: 9 Presentation: vertexABG details Baby A Cord blood gases: not collectedNuchal cord Baby A Nuchal cord: no DeliveryCesarean section Abdominal incision: Pfannenstiel Primary indication: prior myomectomy Priority: scheduled Antibiotic prior to incision: 1 dose )(SCDs applied activated: Yes Incision: low transverse Hemorrhage: no Uterine scar: incidental window (approximately 3cm in diameter) Consent: indication discussed, questions answered, pt consent to op delivery Mother's condition: mother stable Infant's condition: infant stable in roomAdditional comments:evidence of prior left oophectomy, uterine suspension, and fimbrioplasty evident, moderate amount of endometriosis implants seen on posterior surface of uterus.3cm uterine window noted on anterior surface of uterus approximately 3cm superior and to the left of where hysterotomy made - was able to incoporate window into hysterotomy repair Operative Note-FullNursing Data:The data set between the solid lines has been imported from nursing documentation. Any exceptions have been noted below under Provider comments. ROM date: 05/02/19 ROM time: 1518Membranes rupture method: AROMAmniotic fluid color: ClearAmniotic fluid amount: EGA (weeks/days): 37.0EGA at admit (weeks): EGA at delivery (weeks): Steroids prior to arrival: Antibiotic prophylaxis given: evaluation at delivery: Delivery date infant A: 05/02/19 Delivery time infant A: 1519Birthweight (gm) infant A: 3120Weight (lb) A: Weight (oz) infant A: Gender infant A: FemaleApgar 1 minute A: 9Apgar 5 minutes A: 9Apgar 10 minutes infant A: Cord pH obtained A: Vacuum time A: Vacuum # pulls infant A: Vacuum # popoffs infant A: Provider comments on imported nursing data: [] )(Start date: 05/02/19)(Start time: 1511)(Pre-procedure diagnosis:prior myomectomy)(Post-procedure diagnosis: same as pre-procedure dx)(Procedures performed:primary low transverse )(Technique/Procedure:After informed consent was obtained, the patient was taken to the operating roomwhere anesthesia was administered and found to be adequate. She was then preppedand draped in sterile fashion in a dorsal supine position with a leftward tilt. A time out procedure was then performed and the OR team agreed to the planned procedure. The patient s abdomen was then tested with an Allis clamp and anesthesia was found to be adequate. A Pfannenstiel skin incision was then made with the scalpel and carried down to the underlying fascia with the bovie. The bovie was then used to score the fascia in the midline and the incision was then extended laterally using Tapia scissors. The superior aspect of the fascial incision was then grasped with Sarbjit clamps, elevated and rectus muscles were dissected off. The inferior aspect of the fascial incision was then grasped with Sarbjit clamps, elevated andrectus muscles were dissected off. The rectus muscles were then in the midline and the peritoneum identified in a clear area and entered bluntly. The peritoneum was then extended superior and inferiorly with good visualization of the bladder. The bladder blade was then inserted and the vesicouterine peritoneum was then identified, grasped with pickups and entered sharply using Metzembaum scissors. The incision was then extended laterally and bladder flap created digitally. The bladder blade was then reinserted and the uterus was incised in a transversefashion with the scalpel. The incision was then extended laterally using Crump method. The infant was then delivered in cephalic presentation atraumatically, nose and mouth were suctioned, cord was clamped and cut, and was handed off to waiting nurse. Nuchal cord was not noted. Cord blood banking was collected forMDA. The placenta was then removed manually and the uterus was exteriorized and was cleared of all clots and debris with a moist lap sponge. The hysterotomy was then repaired using 0 Monocryl in a running locked fashion with good hemostasis noted. evidence of prior left oophectomy, uterine suspension, and fimbrioplasty evident, moderate amount of endometriosis implants seen on posterior surface of uterus.3cm uterine window noted on anterior surface of uterus approximately 3cm superior and to the left of where hysterotomy made - was able to incoporate window into hysterotomy repair The uterus was then returned to the abdomen. The pelvic colic gutters were then cleared off all clots and debris using a moist lap sponge. The hysterotomy and bladder were then reinspected and found to be hemostatic. The rectus muscles and peritoneum were then reapproximated in the midline using 2.0 Chromic in a mattress suture fashion. The muscle and fascia were then examined and found to be hemostatic. The fascia was then reapproximated using 0Vicryl in a running fashion. The subcutaneous tissue was then irrigated and bovie cautery was used to obtain hemostasis. The subcutaneous tissue was then reapproximated using 2.0 Plain. The skin was then closed with 3.0 Monocryl in asubcuticular fashion. The patient tolerated the procedure well. She was then taken to recovery room in stable condition. Sponge, lap and needle counts were correct times 3. The radiofrequency scan was performed for retained sponges and was negative. 2 grams of ancef were given prior to the start of surgery for surgical prophylaxis. )(Primary Surgeon: Margoth Mabry MD)(Manager Progressive Care(s): MIKALA Bradshaw)(Anesthesia: combined general/epiIndications:prior myomectomy)(Complications: none)( Estimated blood loss (ml): 700)(Specimens removed/altered: noneCultures sent: NoDrain(s)/tube(s): none)(Implant(s): noneFluids:900Urine output:50Disposition: PACURecommendations:discussed with patient due to history and evidence of endometriosis would recommend hormonal control with COCPs or mirena IUD once completes breastfeedingCounts: Sponge count: correct Instrument count: correct Needle count: correctWound class: clean-contaminated at 1829 RPT #:[id number] OF REPORT OBObstetric [id number] able for patient [id number] [facility]
[2024-01-06 12:55] LABS: Absolute Basophils 0.1 K/uL (0-0.5); Absolute Eosinophils 0.2 K/uL (0-0.5); Absolute Lymphocytes (CBC) 1.8 K/uL (0.7-4.9); Absolute Monocytes 0.6 K/uL (0.1-1.3); Absolute Neutrophil 5.1 K/uL (1.8-8.0); Basophils % 0.7 % (0-1.3); Eosinophils % 2.7 % (0-4.4); Hematocrit 39.5 % (36.0-45.0); Hemoglobin 12.8 g/dL (12.0-15.0); Lymphocytes % 23.3 % (15.3-44.8); MCH 28.1 pg (27.0-35.0); MCHC 32.6 g/dL (32.0-36.0); MCV 86.2 fL (80-100); MPV 7.1 fL (7.6-11.3); Monocytes % 7.8 % (3.3-12.3); Neutrophils % 65.5 % (41.7-73.7); Nucleated Red Blood Cells % 0.2 % (0-0); Platelets 314 thou/uL (152-406); RBC Red Blood Cell Count 4.57 M/uL (3.86-4.86); Red Cell Distribution Width 14.2 % (12.1-15.2)
[2024-01-06 12:59] LABS: Specific Gravity > 1.030 (1.005-1.030)
[2024-01-06 13:12] LABS: Albumin 3.6 g/dL (3.4-5.0); Albumin/Globulin Ratio 0.9 (1.1-1.8); Anion Gap 6.3 mEq/L (5.0-15.0); Bilirubin Total 0.4 mg/dL (0.2-1.0); Calcium Oxalate Crystals- Ur Few /HPF (None Seen); Globulin 3.9 g/dL (2.3-3.5); Potassium 3.3 mEq/L (3.5-5.1); Protein, Total 7.5 g/dL (6.4-8.2); Specific Gravity > 1.030 (1.005-1.030); Sqamous Epithelial <5 /HPF (None Seen); Urine Bacteria None Seen /HPF (<20); Urine Bilirubin NEGATIVE (Negative); Urine Blood 1+ (Negative); Urine Clarity Extremely Turbid (Clear); Urine Color Yellow (Yellow); Urine Culture Reflex Order NOT NEEDED; Urine Glucose NEGATIVE (Negative); Urine Ketones NEGATIVE (Negative); Urine Microscopic Reflex YN ORDER UMIC; Urine Mucus 4+ /HPF (None Seen); Urine Nitrite NEGATIVE (Negative); Urine Protein 1+ (Negative); Urine Urobilinogen Normal (Normal); Urine WBC <5 /HPF (<5)
--- NOTE | 2024-01-06 14:19 | RAD REPORT ---
EXAM DESCRIPTION: CTAbdomen Pelvis W Contrast - 01/06/2024 1:52 pm CLINICAL HISTORY: Abdominal pain. diarrhea;Abd pain COMPARISON: <Comparisons> TECHNIQUE: Biphasic CT imaging of the abdomen and pelvis was performed with 100 ml non-ionic IV cont rast. All CT scans are performed using dose optimization technique as appropriate and may include automated exposure control or mA/KV adjustment according to patient size. FINDINGS: The lung bases are clear. The liver, spleen, pancreas, adrenal glands and kidneys are within normal limits. No bowel obstruction, free air, free fluid or abscess. Significant thickening and inflammation is see n involving the cecum and ascending colon with numerous surrounding lymph nodes. This predominately i nvolves the ascending colon to the level of the hepatic flexure. The appendix is not identified as a discrete structure, however, no secondary findings of appendicitis are identified. 5.3 cm right adne xal cyst. No suspicious bony findings. IMPRESSION: Moderate inflammation involves the cecum and ascending colon as detailed. No pneumatosis coli. The findings may indicate infectious colitis or inflammatory bowel disease. Typhlitis would be another less likely possibility. 5.3 cm right adnexal cyst.
[2024-01-06] MEDS ORDERED: CIPROFLOXACIN HCL 500 MG TAB ONE (15:32)
[2024-01-06] MEDS ORDERED: ONDANSETRON 4 MG/2 ML VIAL ONE (15:32)
[2024-01-06] MEDS ORDERED: METRONIDAZOLE 500mg IVPB 500 MG/100 ML BAG IV ONE (15:32)
--- NOTE | 2024-01-06 15:50 | ER ---
Nurse's Notes [facility] Name: Anthony Rod[facility]guez Age: 33 yrs Sex: Female : 1990 Arrival Date: 01/06/2024 Time: 11:50 Bed 19 Private MD: Dannie Lopez V Diagnosis: Infectious gastroenteritis and colitis, unspecified Presentation: 01/05 12:14 Chief complaint: Patient states: Abdominal pain for 9 days. + diarrhea. No N/V. Fever ll1 last week, none now. 12:15 Coronavirus screen: Client denies travel out of the [place] in the last 14 days. At this ll1 time, the client does not indicate any symptoms associated with coronavirus-19. Ebola Screen: Patient denies travel to an Ebola-affected area in the 21 days before illness onset. Initial Sepsis Screen: Does the patient meet any 2 criteria? No. Patient's initial sepsis screen is negative. Does the patient have a suspected source of infection? No. Patient's initial sepsis screen is negative. Risk Assessment: Do you want to hurt yourself or someone else? Patient reports no desire to harm self or others. Onset of symptoms was December 28, 2023. 12:15 Method Of Arrival: Ambulatory ll1 12:15 Acuity: MUKESH 3 ll1 Triage Assessment: 12:17 General: Appears uncomfortable, Behavior is calm, cooperative, appropriate for age. ll1 Pain: Complains of pain in abdomen. GI: Reports lower abdominal pain, upper abdominal pain, diarrhea. Historical: - Allergies: 12:16 No Known Allergies; ll1 - PMHx: 12:16 Endometriosis of vagina; ll1 - Immunization history:: Adult Immunizations up to date. - Social history:: Smoking status: Patient denies any tobacco usage or history of. - Family history:: not pertinent. - Hospitalizations: : No recent hospitalization is reported. Screenin:47 [facility] ED Fall Risk Assessment (Adult) History of falling in the last 3 months, nj1 including since admission No falls in past 3 months (0 pts) Confusion or Disorientation No (0 pts) Intoxicated or Sedated No (0 pts) Impaired Gait No (0 pts) Mobility Assist Device Used No (0 pt) Altered Elimination No (0 pt) Score/Fall Risk Level 0 - 2 = Low Risk Oriented to surroundings, Maintained a safe environment, Hourly rounding (assess needs \T\ fall precautionary measures) done. 15:47 Abuse screen: Denies threats or abuse. Denies injuries from another. Nutritional nj1 screening: No deficits noted. Tuberculosis screening: No symptoms or risk factors identified. Assessment: 15:40 General: Appears in no apparent distress. uncomfortable, Behavior is calm, cooperative, nj1 appropriate for age. Pain: Complains of pain in abdomen Pain currently is 4 out of 10 on a pain scale. at worst was 6 out of 10 on a pain scale. Neuro: Level of Consciousness is awake, alert, obeys commands, Oriented to person, place, time, situation. 15:40 Cardiovascular: Patient's skin is warm and dry. Respiratory: Airway is patent nj1 Respiratory effort is even, unlabored. GI: Reports upper abdominal pain, nausea. 16:20 Reassessment: Abx infusing. nj1 17:34 Reassessment: Patient appears in no apparent distress at this time. Patient is alert, nj1 oriented x 3, equal unlabored respirations, skin warm/dry/pink. 17:36 Reassessment: Patient appears in no apparent distress at this time. Patient is alert, nj1 oriented x 3, equal unlabored respirations, skin warm/dry/pink. DC delayed due to IV ABX infusing slowly. Vital Signs: 12:15 BP 119 / 88; Pulse 89; Resp 16; Temp 97.1; Pulse Ox 100% ; Weight 78.93 kg; Height 5 ll1 ft. 7 in. ; Pain 7/10; 17:33 BP 114 / 79; Pulse 79; Resp 16; Temp 97.6; Pulse Ox 99% on R/A; Pain 4/10; nj1 12:15 Body Mass Index 27.25 (78.93 kg, 170.18 cm) ll1 12:15 Pain Scale: Adult ll1 17:33 Pain Scale: Adult nj1 ED Course: 11:53 Patient arrived in ED. mr 11:53 Dannie Lopez MD is Private Physician. mr 12:03 Arm band placed on. ll1 12:10 Kristopher Seals MD is Attending Physician. rn 12:16 Triage completed. ll1 12:47 CBC with Diff Sent. bc6 12:47 CMP Sent. bc6 12:47 Lipase Sent. bc6 12:47 Test, Urine Sent. 6 12:47 Urinalysis w/ reflexes Sent. 6 12:47 Initial lab(s) drawn, by nd, sent to lab. Urine collected: clean catch specimen. 6 Inserted saline lock: 22 gauge in left antecubital area, using aseptic technique. Blood collected. 13:54 CT Abd/Pelvis - IV Contrast Only In Process Unspecified. EDWI 15:07 Lauren Sadler, RN is Primary Nurse. nj1 15:40 Patient has correct armband on for positive identification. Bed in low position. Call nj1 light in reach. Adult w/ patient. Provided Education on: call light, fall precautions. 17:35 No provider procedures requiring assistance completed. nj1 17:35 IV discontinued, intact, bleeding controlled, Pressure dressing applied. nj1 Administered Medications: 15:40 Drug: Ondansetron IVP 4 mg IVP once; over 2 minutes Route: IVP; Site: left antecubital; nj1 16:30 Follow up: Response: No adverse reaction; Nausea is decreased nj1 15:42 Drug: Ciprofloxacin PO 500 mg PO once Route: PO; nj1 16:30 Follow up: Response: No adverse reaction nj1 15:42 Drug: metroNIDAZOLE IVPB 500 mg 100 ml IVPB at 200 ml/hr once over 30 mins Volume: 100 nj1 ml; Route: IVPB; Rate: 200 ml/hr; Infused Over: 30 mins; Site: left antecubital; 17:33 Follow up: Response: No adverse reaction; IV Status: Completed infusion; IV Intake: nj1 100ml Medication: 17:35 VIS not applicable for this client. nj1 Intake: 17:33 IV: 100ml; Total: 100ml. nj1 Outcome: 15:50 Discharge ordered by . rn 17:35 Discharged to home ambulatory, with family, nj1 17:35 Condition: stable 17:35 Discharge instructions given to patient, Instructed on discharge instructions, follow up and referral plans. medication usage, Demonstrated understanding of instructions, follow-up care, medications, Prescriptions given X 4, 17:40 Patient left the ED. iw Signatures: Dispatcher [employer] EDWI DuarteAnnie, Reg Reg mr Mikayla Tyson, RN RN Kristopher Seals MD MD rn Lewis, Lynsay, RN RN 1 Lesa Neri [facility] Lauren Sadler RN RN nj1 Corrections: (The following items were deleted from the chart) 12:17 12:15 Pulse 89bpm; Resp 16bpm; Pulse Ox 100%; Temp 97.1F; 78.93 kg; Height 5 ft. 7 in.; ll1 BMI: 27.2; Pain 04/05, Adult; ll1
--- NOTE | 2024-01-06 15:50 | EDPHYS ---
Physician Documentation [facility] Name: Anthony Rodríguez Age: 33 yrs Sex: Female : 1990 Arrival Date: 01/06/2024 Time: 11:50 Bed 19 Private MD: Dannie Lopez V ED Physician Kristopher Seals HPI: 01/05 15:47 This 33 yrs old Female presents to ER via Ambulatory with complaints of Abdominal Pain. rn 15:47 The patient presents with abdominal pain. Onset: The symptoms/episode began/occurred 1 rn week(s) ago. The symptoms do not radiate. Associated signs and symptoms: Pertinent positives: diarrhea, Pertinent negatives: fever. Modifying factors: The symptoms are alleviated by nothing, the symptoms are aggravated by touching the area. The patient has not experienced similar symptoms in the past. The patient has not recently seen a physician. No history of inflammatory bowel disease. No blood in stool.. Historical: - Allergies: 12:16 No Known Allergies; ll1 - PMHx: 12:16 Endometriosis of vagina; ll1 - Immunization history:: Adult Immunizations up to date. - Social history:: Smoking status: Patient denies any tobacco usage or history of. - Family history:: not pertinent. - Hospitalizations: : No recent hospitalization is reported. ROS: 15:47 Constitutional: Negative for fever, chills, and weight loss, Cardiovascular: Negative rn for chest pain, palpitations, and edema, Respiratory: Negative for shortness of breath, cough, wheezing, and pleuritic chest pain, Abdomen/GI: Positive for abdominal pain and diarrhea Exam: 15:47 Constitutional: This is a well developed, well nourished patient who is awake, alert, rn and in no acute distress. Cardiovascular: Regular rate and rhythm. No pulse deficits. Respiratory: No increased work of breathing, no retractions or nasal flaring. Abdomen/GI: Soft, mild epigastric tenderness MS/ Extremity: Pulses equal, no cyanosis. Neuro: Awake and alert, GCS 15 Vital Signs: 12:15 BP 119 / 88; Pulse 89; Resp 16; Temp 97.1; Pulse Ox 100% ; Weight 78.93 kg; Height 5 ll1 ft. 7 in. ; Pain 7/10; 17:33 BP 114 / 79; Pulse 79; Resp 16; Temp 97.6; Pulse Ox 99% on R/A; Pain 4/10; nj1 12:15 Body Mass Index 27.25 (78.93 kg, 170.18 cm) ll1 12:15 Pain Scale: Adult ll1 17:33 Pain Scale: Adult nj1 MDM: 12:10 Patient medically screened. rn 15:47 Differential diagnosis: diverticulitis, gastritis, non-specific abd pain, pancreatitis, rn Peptic Ulcer Disease, Perf. Duodenal Ulcer, Perf. Gastric Ulcer, Colitis. Data reviewed: vital signs, nurses notes, lab test result(s), radiologic studies, CT scan, and as a result, I will discharge patient. Counseling: I had a detailed discussion with the patient and/or guardian regarding the historical points, exam findings, and any diagnostic results supporting the discharge/admit diagnosis, lab results, radiology results, the need for outpatient follow up, to return to the emergency department if symptoms worsen or persist or if there are any questions or concerns that arise at home. Special discussion: Based on the patient's Hx, exam, and Dx evaluation, there is no indication for emergent surgery or inpatient Tx. It is understood by the patient/guardian that if the Sx's persist or worsen they need to return immediately for re-evaluation. I discussed with the patient/guardian in detail that at this point there is no indication for admission to the hospital. It is understood, however, that if the symptoms persist or worsen the patient needs to return immediately for re-evaluation. Based on the history and exam findings, there is no indication for further emergent testing or inpatient evaluation. I discussed with the patient/guardian the need to see the medical psychotherapist for further evaluation of the symptoms. 01/05 12:20 Order name: CBC with Diff; Complete Time: 13:47 rn 01/05 12:20 Order name: CMP; Complete Time: 13:47 rn 01/05 12:20 Order name: Lipase; Complete Time: 13:47 rn 01/05 12:20 Order name: Test, Urine; Complete Time: 13:47 rn 01/05 12:20 Order name: Urinalysis w/ reflexes; Complete Time: 13:47 rn 01/05 12:20 Order name: CT Abd/Pelvis - IV Contrast Only; Complete Time: 14:40 rn 01/05 12:20 Order name: IV Saline Lock; Complete Time: 12:47 rn 01/05 12:20 Order name: Labs collected and sent; Complete Time: 12:47 rn Administered Medications: 15:40 Drug: Ondansetron IVP 4 mg IVP once; over 2 minutes Route: IVP; Site: left antecubital; nj1 16:30 Follow up: Response: No adverse reaction; Nausea is decreased nj1 15:42 Drug: Ciprofloxacin PO 500 mg PO once Route: PO; nj1 16:30 Follow up: Response: No adverse reaction nj1 15:42 Drug: metroNIDAZOLE IVPB 500 mg 100 ml IVPB at 200 ml/hr once over 30 mins Volume: 100 nj1 ml; Route: IVPB; Rate: 200 ml/hr; Infused Over: 30 mins; Site: left antecubital; 17:33 Follow up: Response: No adverse reaction; IV Status: Completed infusion; IV Intake: nj1 100ml Disposition Summary: 01/06/24 15:50 Discharge Ordered Notes: Location: Home rn Problem: new rn Symptoms: have improved rn Condition: Stable rn Diagnosis - Infectious gastroenteritis and colitis, unspecified rn Followup: rn - With: Private Physician - When: As needed - Reason: Recheck today's complaints, Re-evaluation by your physician Discharge Instructions: - Discharge Summary Sheet rn - Diarrhea, Adult rn - Colitis rn Forms: - Medication Reconciliation Form rn - Thank You Letter rn - Antibiotic rn otolaryngology - Prescription Opioid Use rn - Patient Portal Instructions rn - Leadership Thank You Letter rn Prescriptions: - ondansetron 4 mg Oral Tablet,disintegrating - take 1 tablet ORAL route every 8 hours As needed; 12 tablet; Refills: 0, rn Product Selection Permitted - Flagyl 500 mg Oral Tablet - take 1 tablet ORAL route every 8 hours for 10 days; 30 tablet; Refills: 0, rn Product Selection Permitted - Cipro 500 mg Oral tablet - take 1 tablet ORAL route every 12 hours for 10 days; 20 tablet; Refills: 0, rn Product Selection Permitted - Tramadol 50 mg Oral Tablet - take 1 tablet ORAL route every 8 hours as needed; 12 tablet; Refills: 0, rn Product Selection Permitted Signatures: Dispatcher [employer] EDMS Kristopher Seals MD MD rn Lewis, Lynsay RN RN ll1 Lauren Sadler RN RN nj1 Corrections: (The following items were deleted from the chart) 12:21 12:21 CBC+H.LAB.BRZ ordered. EDMS EDMS 12: 12:21 COMPREHENSIVE METABOLIC PANEL+C.LAB.BRZ ordered. EDMS EDMS 12: 12:21 LIPASE+C.LAB.BRZ ordered. EDMS EDMS 12: 12:21 Test, Urine+UC.LAB.BRZ ordered. EDMS EDMS 12: 12:21 Urinalysis+U.LAB.BRZ ordered. EDMS EDMS
[2024-01-06 19:44] VITALS: BP 114/79; TEMP 97.6; O2SAT 99
== END 2024-01-06 17:40 | disposition home or self-care (01) ==
LOC: ER 11:50
DX: A09 Infectious gastroenteritis and colitis, unspecified (principal)
CPT/HCPCS: 96365; 85025; 81001; 36415; 81025; 83690; 80053; 74177; 96375; 99284; 96366; J2405